=== PATIENT | female | born 1985 | race Caucasian/White ===

== ENCOUNTER 2022-10-12 16:37 | Outpatient (CLI) | payer BC, OTHER, SELFPAY ==
--- NOTE | ~2022-10-12 | MR_ITS ---
MRI of the left knee Clinical history: Pain Technique: Coronal proton density and proton density-weighted images, sagittal proton-density and T2 fat-sat images, and axial proton-density fat-saturated images were acquired. Findings: The proximal portion of the ACL is not well delineated/visualized, and a chronic complete t ear is suspected. There is associated anterior tibial translation of 12 mm. There is also associated relative buckled appearance of the PCL, which is otherwise intact. Medial collateral ligament and the lateral collateral ligament complex are intact. Popliteus tendon is intact. No lateral meniscal tear seen. There is somewhat complex horizontal/oblique tearing of the posterior horn and body of medial meniscus. Articular cartilage is well preserved throughout the knee. Bone marrow signals are unremarkable. Extensor mechanism is intact. No significant joint effusion or Covington's cyst. 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 Associated relative anterior translatio n of the tibia. Correlate with physical exam for ACL laxity. Somewhat complex horizontal/oblique tearing of the posterior horn and body of the medial meniscus. Reviewed, dictated and finalized at location . 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 Associated relati ve anterior translation of the tibia. Correlate with physical exam for ACL laxi ty. Somewhat complex horizontal/oblique tearing of the posterior horn and body of t he medial meniscus.
== END 2022-10-12 16:38 | disposition home or self-care (01) ==
PROVIDERS: Visit Provider Orthopaedic Surgery
DX: M25.562 Pain in left knee (principal)
CPT/HCPCS: 73721